=== PATIENT | male | born 1975 | race Caucasian/White ===

== ENCOUNTER 2024-12-13 12:08 | Emergency (ER) | payer OTHER, SELFPAY ==
[2024-12-13] VITALS (30 sets, daily range): BP systolic 135–173; BP diastolic 78–104; PULSE 66–95; RESP 12–29; TEMP 36.7–36.9; O2SAT 78–100; BMI 30.8
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
[2024-12-13 12:39] LABS: Add Manual Diff / Slide Review NO; Basophils Absolute Auto 100 /uL (0-100); Basophils Percent Auto 0.9 % (0-2); Eosinophils Absolute Auto 200 /uL (0-450); Hematocrit 35.7 % (41-53); Hemoglobin 11.6 g/dL (13.5-17.5); Lymphocytes Absolute Auto 1200 /uL (1100-4500); Lymphocytes Percent Auto 15.4 % (25-40); Mean Corpuscular HGB Conc 32.5 % (30-36); Monocytes Absolute Auto 600 /uL (0-900); Monocytes Percent Auto 7.2 % (3-14); Neutrophils Absolute Auto 5800 /uL (1500-7000); Neutrophils Percent Auto 74.5 % (50-75); Platelet Count 365 X10^3/uL (150-400); Red Blood Cell Count 4.15 X10^6/uL (4.5-5.9); White Blood Cell Count 7.7 X10^3/uL (4.5-11.0)
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
--- NOTE | 2024-12-13 12:45 | EKG_ITS ---
[facility] [id number] [place] [id number] Test Date: 2024-12-13 Pat Name: Dante Haines Department: Room: Gender: Male General Matcher: ENRIQUE : 1975 Requested By: Order Number: [id number] Reading MD: Jovany Arriaga MD Measurements Intervals [place] Rate: 90 P: 61 NE: 170 QRS: 60 QRSD: 100 T: 47 QT: 402 QTc: 491 Interpretive Statements Normal sinus rhythm Minimal voltage criteria for LVH, may be normal variant ( Sokolow-Charles ) Prolonged QT Electronically Signed On 12-14-2024 7:42:50 PDT by Jovany Arriaga MD
[2024-12-13] MEDS: HYDROMORPHONE 1 MG INJ 0.5 MG IV (12:46)
[2024-12-13] MEDS: TET,DIPH,PERTUSS(ACELL),VAC/PF 0.5 ML SYRINGE IM (12:46)
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
[2024-12-13 13:35] LABS: Prothrombin Time 11.3 SECONDS (9.4-12.5)
[2024-12-13 13:38] LABS: PTT Partial Thromboplastin Tim 35 SECONDS (25.1-36.5)
[2024-12-13 13:40] LABS: Alanine Aminotransferase 20 IU/L (<50); Albumin 4.3 g/dL (3.5-5.0); Albumin Globulin Ratio 1.2 (1.0-2.8); Alkaline Phosphatase 97 U/L (38-126); Aspartate Aminotransferase 40 IU/L (17-59); BUN Creatinine Ratio 23.1 (6-22); Bilirubin Total 0.4 mg/dL (0.2-1.3); Blood Urea Nitrogen 21 mg/dL (9-20); Calcium 8.8 mg/dL (8.4-10.2); Carbon Dioxide 23 mmol/L (22-32); Chloride 100 mmol/L (98-107); Creatine Kinase 460 U/L (55-170); Estimated Glomerular Filt Rate > 60 mL/min (>60); Ethanol (ETOH) < 10 mg/dL; Globulin 3.5 g/dL (1.7-4.1); Glucose 114 mg/dL (70-100); HEMOLYSIS < 15 (0-50); Lactate (Lactic Acid) 1.1 mmol/L (0.7-2.1); Lipase 127 U/L (23-300); Potassium 3.4 mmol/L (3.4-5.1); Sodium 134 mmol/L (137-145); Total Protein 7.8 g/dL (6.3-8.2)
--- NOTE | 2024-12-13 13:45 | PC.NURSE ---
PT desats to 88% on RA while sleeping. Placed on 2L per NC.
[2024-12-13 13:52] LABS: Troponin I < 0.012 ng/mL (0.01-0.034)
[2024-12-13 13:55] LABS: UR Morphine/Opiate cutoff 300 Positive (Negative); Ur Creatinine Normal (Normal); Ur Specific Gravity Normal (Normal); Urine Amphetamines Positive (Negative); Urine Cocaine Negative (Negative); Urine Methamphetamines Positive (Negative); Urine Tetrahydrocannabinol Positive (Negative); Urine pH Normal (Normal)
[2024-12-13 13:56] LABS: Urine Barbiturates Negative (Negative); Urine Benzodiazepines Negative (Negative); Urine MDMA Negative (Negative); Urine Methadone Negative (Negative); Urine Oxycodone Negative (Negative); Urine Phencyclidine Negative (Negative); Urine Tricyclic Antidepressant Negative (Negative)
--- NOTE | 2024-12-13 14:18 | PC.NURSE ---
Pt reports pain to left shoulder. MD notified.
[2024-12-13] MEDS: HYDROMORPHONE 0.5 MG INJ IV (14:36)
--- NOTE | 2024-12-13 14:36 | DI.RAD.S_ITS ---
PROCEDURE: XR SHOULDER LT MIN 2V INDICATIONS: pain trauma TECHNIQUE: 2 views of the shoulder were acquired. COMPARISON: None. FINDINGS: Bones: No fractures or dislocations. No suspicious bony lesions. Visualized ribs appear intact. Soft tissues: No suspicious soft tissue calcifications. IMPRESSION: No acute bony abnormality. Dictated by: Kimani Renee M.D. on 12/13/2024 at 15:02 Approved by: Kimani Renee M.D. on 12/13/2024 at 15:02
[2024-12-13] MEDS: KETOROLAC 30 MG/ML VIAL 15 MG IV (15:48)
--- NOTE | 2024-12-13 16:21 | PC.NURSE ---
Pt up ambulating in awad to BR. Steady gait noted.
--- NOTE | 2024-12-13 16:35 | PC.NURSE ---
Pt given [place] [facility] bus pass and a schedule to get to [facility] as desired.
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
== END 2024-12-13 17:03 | disposition home or self-care (01) ==
PROVIDERS: Emergency Provider Emergency Medicine
DX: S46.912A Strain of unspecified muscle, fascia and tendon at shoulder and upper arm level, left arm, initial encounter (principal); S00.01XA Abrasion of scalp, initial encounter; R07.9 Chest pain, unspecified; F19.10 Other psychoactive substance abuse, uncomplicated; V48.0XXA Car driver injured in noncollision transport accident in nontraffic accident, initial encounter; Z23 Encounter for immunization
CPT/HCPCS: 36415; 70450; 71045; 71275; 72125; 72170; 73030; 74177; 80053; 80305; 80320; 82550; 83605; 83690; 84484; 85025; 85610; 85730; 86850; 86900; 86901; 90471; 93005; 96374; 96375; 96376; 99285; 90715; J1171; J1885; Q9967